=== PATIENT | female | born 1935 | race Caucasian/White ===

== ENCOUNTER → 2017-03-26 | Outpatient (CLI) | payer MEDICARE, BC ==
[~2017-03-26] MED LIST: ALPR0.254 PO; ASPI-650 PO; ESTR0.5T PO; FURO-93 PO; HYDR-3240 PO; LEVO75TA5 PO; LOSA100T6 PO; METO25TA35 PO; ZOLP10TA5 PO
== END | disposition home or self-care (01) ==
LOC: CVU 13:08
PROVIDERS: ATTEND Internal Medicine Cardiovascular Disease
DX: I65.23 Occlusion and stenosis of bilateral carotid arteries (principal); Z86.73 Personal history of transient ischemic attack (TIA), and cerebral infarction without residual deficits
CPT/HCPCS: 93880